=== PATIENT | female | born 1980 | race African-American/Black ===

== ENCOUNTER 2017-01-13 00:17 | Emergency (ER) | payer SELFPAY ==
[~2017-01-13] VITALS: Ht 157.5 cm; Wt 83.2 kg
--- NOTE | 2017-01-13 01:43 | PHYS DOC ---
Adult General Chief Complaint Chief Complaint: VAGINAL PROBLEM HPI HPI Patient is a 36 year old M who presents with right nipple drainage and vaginal drainage. Patient states her boyfriend described to and she has not had intercourse for the past 6 months. However the for the past week she did have intercourse with her boyfriend. Patient denies any history of STDs. Patient denies any abdominal pain. Patient denies any chest pain or short of breath. Patient has no other complaints. Review of Systems Review of Systems GEN: Denies fevers, chills, sweats HEENT: Denies blurred vision, sore throat CV: Denies chest pain RESP: Denies shortness of air, cough GI: Denies n/v/d : Breast and vaginal discharge NEURO: Denies confusion, dizziness MSK: Denies weakness, joint pain/swelling Allergies Allergies Allergies Coded Allergies Type Severity Reaction Last Updated Verified latex Allergy Unknown 01/13/17 Yes tramadol Allergy Unknown 01/13/17 Yes Physical Exam Physical Exam GEN.: No apparent distress. Alert and oriented. HEENT: Head is normocephalic, atraumatic NECK: Supple. LUNGS: CTAB. BREAST: Right nipple is ulcerated with purulent drainage, no fluctuance, no induration felt around the area left HEART: RRR, S1, S2 present. Peripheral pulses intact ABDOMEN: Soft, nontender. Positive bowel sounds. : No vesicles seen, ulcerations to the to the entrance of the vagina and around the labia majora, purulent drainage from the cervix with no cervical motion tenderness and no adnexal tenderness EXTREMITIES: Without any cyanosis. NEUROLOGIC: Normal speech, normal tone PSYCHIATRIC: Normal affect, normal mood. SKIN: No ulcerations EKG EKG [] Radiology/Procedures Radiology/Procedures [] Course & Med Decision Making Course & Med Decision Making Pertinent Labs and Imaging studies reviewed. (See chart for details) ED course: She was seen and examined emergency room a vaginal exam and her breast exam was done and swabs are taken 0154: Explain to the patient and based on physical exam findings that she mostly has genital herpes. Explained the patient we'll treat her for suspected STD exposure with 250 mg Rocephin IM and 1 g of Zithromax by mouth and sat swabs. Recommended patient follow-up with [facility] [facility] and family doctor for further evaluation and management. Made patient aware of her UA results and plan to treat for UTI. MDM: After reviewing the chart, CC/HPI/PMH, physical exam, [lab results], I do not believe the patient has a significant pelvic infection such as a tubo-ovarian abscess warranting further workup and/or admission at this time. I believe the patient has an STD exposure and most likely genital herpes. We'll treat the patient for suspected STD exposure with Rocephin and Zithromax. Recommended patient follow-up with her PCP for further evaluation of her nipple drainage but I do not feel any area of fluctuance or induration that would warrant an abscess needed to be drained. Patient is stable for discharge. Additional verbal discharge instructions were provided to the patient and that if symptoms get worse or any new symptoms arise that are worrisome to the patient she is to return to the emergency room immediately [] Dragon Disclaimer Dragon Disclaimer This chart was dictated in whole or in part using Voice Recognition software in a busy, high-work load, and often noisy Emergency Department environment. It may contain unintended and wholly unrecognized errors or omissions. Departure Departure: Impression: Primary Impression: Venereal herpes Additional Impressions: STD exposure Nipple discharge UTI (urinary tract infection) Disposition: HOME, SELF-CARE Condition: STABLE Referrals: PCP,NO (PCP) Patient Instructions: Safe Sex, Urinary Tract Infection Additional Instructions: Please follow-up with your family physician in the next one to 2 days to further evaluate her nipple drainage and her STD exposure Scripts Sulfamethoxazole/Trimethoprim (BACTRIM DS TABLET) 1 Each Tablet 1 TAB PO BID for 5 Days, #10 TAB Prov: JEFFERY MARINO DO 01/13/17 Hydrocodone Bit/Acetaminophen (NORCO 5-325 TABLET) 1 Each Tablet 1 TAB PO PRN Q6HRS Y for PAIN for 3 Days, #12 TAB 0 Refills Prov: JEFFERY MARINO DO 01/13/17 Acyclovir (ACYCLOVIR) 400 Mg Tablet 1 TAB PO TID for 10 Days, #30 TAB Prov: JEFFERY MARINO DO 01/13/17 Problem Qualifiers JEFFERY MARINO DO Jan 13, 2017 01:43
[2017-01-13] MEDS ORDERED: cefTRIAXone IM 250 MG VIAL IM ONE (02:00)
[2017-01-13] MEDS ORDERED: AZITHROMYCIN 250 MG TABLET. PO ONE (02:00)
[2017-01-13] MEDS ORDERED: ACYC400T PO (02:02)
[2017-01-13] MEDS ORDERED: HYDR-971 PO (02:02)
[2017-01-13 02:08] LABS: BACTERIA,URINE FEW /HPF (0-FEW); BILIRUBIN,URINE NEG (NEG); CLARITY,URINE HAZY; COLOR,URINE YELLOW; GLUCOSE,URINE NEG (NEG); NITRITE,URINE NEG (NEG); SQUAMOUS EPITHELIAL CELL,UR FEW /LPF; UROBILINOGEN,URINE 0.2 mg/dL (0.2 mg/dL)
[2017-01-13] MEDS ORDERED: IBUPROFEN 400 MG TABLET. PO ONE (02:30)
[2017-01-13] MEDS ORDERED: SULF1TAB24 PO (02:51)
[2017-01-13 03:00] VITALS: BP 124/77
[2017-01-13 03:00] LABS: U PREG PATIENT NEGATIVE (NEG)
[2017-01-14 18:10] LABS: CHLAMYDIA PROBE Negative (Negative)
== END 2017-01-13 03:06 | disposition home or self-care (01) ==
LOC: ER 00:17
DX: Z20.2 Contact with and (suspected) exposure to infections with a predominantly sexual mode of transmission (principal); A60.09 Herpesviral infection of other urogenital tract; N39.0 Urinary tract infection, site not specified; N64.52 Nipple discharge; Z88.6 Allergy status to analgesic agent; Z91.040 Latex allergy status
CPT/HCPCS: 36415; 81001; 81025; 87086; 87491; 87591; 96372; 99284; J0456; J0696; Q0111